=== PATIENT | female | born 1985 | race African-American/Black ===

== ENCOUNTER 2021-09-27 07:39 | Emergency (ER) | payer OTHER | END 2021-09-27 08:25 | disposition home or self-care (01) | LOC: NAV ERS 07:39 | DX: R05.9 Cough, unspecified (principal); I10 Essential (primary) hypertension; Z79.899 Other long term (current) drug therapy | CPT/HCPCS: 99283 ==

== ENCOUNTER 2022-12-18 08:46 | Emergency (ER) | payer BC ==
[2022-12-18] MEDS ORDERED: Lidocaine Viscous Sol 2% 15 ml UD Cup ONE (09:34)
[2022-12-18] MEDS ORDERED: Dexamethasone 20 MG/5 ML VIAL ONE (09:34)
[2022-12-18 16:34] LABS: MONO NEGATIVE CONTROL ZONE White (Negative) (White); MONO POSITIVE CONTROL Pink Line (Positive) (PINK/RED); Mononucleosis NEGATIVE (NEGATIVE)
== END 2022-12-18 11:09 | disposition home or self-care (01) ==
LOC: NAV ERS 08:46
DX: J02.9 Acute pharyngitis, unspecified (principal); I10 Essential (primary) hypertension
CPT/HCPCS: 71045; 86308; 87081; 87430; 96372; J1100